=== PATIENT | female | born 1985 | race Hispanic/Latino ===

== ENCOUNTER 2021-06-14 13:41 | Emergency (ER) | payer OTHER, SELFPAY ==
[2021-06-14] VITALS (26 sets, daily range): BP systolic 91–157; BP diastolic 34–106; PULSE 85–98; RESP 12–23; TEMP 36.8; O2SAT 97–100
--- NOTE | ~2021-06-14 | CT_ITS ---
EXAMINATION: CT abdomen pelvis w con DATE: 06/14/2021 19:33 INDICATION: Left flank pain. Nausea and vomiting. TECHNIQUE: Computed tomography (CT) of the abdomen and pelvis was performed with 100 mL Omnipaque 300 intravenous contrast. Automated exposure control and iterative reconstruction technique were employe d. The dose-length product was 1509.88 mGy-cm. COMPARISON: None. FINDINGS: The visualized portions of the lung bases demonstrate mild atelectasis. A calcified left volodymyr ng nodule is consistent with old granulomatous disease. No pleural effusion. The heart size is normal . No pericardial effusion. The liver, spleen, gallbladder, pancreas, adrenal glands, and kidneys are normal. There are no dilated loops of bowel. The appendix is normal. There are no pathologically enla rged lymph nodes. There is no free intraperitoneal fluid. There is mild lumbar spondylosis. IMPRESSION: 1. No etiology for the patient's symptoms. Reviewed, dictated and finalized at location A.
[2021-06-14 14:04] LABS: Basophils Percent Auto 0.4 % (0.2-1.2); Eosinophils Absolute Auto 0.2 K/mm3 (0-0.3); Hematocrit 40.9 % (37.0-47.0); Hemoglobin 13.8 g/dL (12.0-15.0); Immature Granulocyte Absolute 0.05 K/mm3 (0.00-0.031); Immature Granulocyte Percent A 0.6 % (0-0.5); Lymphocytes Absolute Auto 2.61 K/mm3 (0.9-3.2); Lymphocytes Percent Auto 32.5 % (18.3-44.2); Mean Corpuscular HGB Conc 33.7 g/dl (32-36); Mean Corpuscular Hemoglobin 30.7 pg (26-34); Mean Corpuscular Volume 91.1 fl (80-100); Mean Platelet Volume 9.9 fl (7.4-10.4); Monocytes Absolute Auto 0.6 K/mm3 (0.1-0.6); Neutrophils Absolute Auto 4.5 K/mm3 (1.3-6.7); Neutrophils Percent Auto 56.5 % (45.5-73.1); Platelet Count Result 206 k/mm3 (150-375); Red Blood Count 4.49 M/mm3 (4.2-5.4); Red Cell Distribution Width 12.5 % (11.5-14.5)
[2021-06-14 14:07] LABS: Appearance Urine Cloudy (Clear); Bilirubin Urine Negative (Negative); Blood Urine Negative (Negative); Color Urine Yellow (Yellow); Glucose Urine UA Trace mg/dL (Negative); Ketones Urine Negative (Negative); Leukocyte Esterase Ur 1+ LEU/UL (Negative); Nitrate Urine Negative (Negative); Protein Urine Negative (Negative); Urobilinogen Urine 0.2 mg/dL (<2.0)
[2021-06-14 14:14] LABS: Add Urine Microscopic? YES; Bacteria Urine Trace /hpf; Mucus Urine Rare /lpf; Squamous Epithelial Cell Urine Many /hpf (Few)
[2021-06-14 14:46] LABS: Alanine Aminotransferase 190 U/L (4-35); Albumin Level 4.3 g/dL (3.5-5.1); Alkaline Phosphatase 108 U/L (38-126); Anion Gap 6 mmol/L (8-16); Aspartate Amino Transferase 111 U/L (14-36); Bilirubin,Total 1.6 mg/dL (0.2-1.3); Blood Urea Nitrogen 6 mg/dL (7-17); Calcium 9.6 mg/dL (8.4-10.2); Carbon Dioxide 26 mmol/L (22-30); Chloride 105 mmol/L (98-107); Glucose 122 mg/dL (65-110); Potassium 3.7 mmol/L (3.4-5.0); Sodium 137 mmol/L (137-145)
[2021-06-14 16:10] LABS: Estimated CRCL calculation 204 ml/min; Estimated Glomerular Filt Rate > 60
--- NOTE | 2021-06-14 19:14 | ED.ABDPAIN ---
HPI - Abdominal Pain General Chief Complaint: Abdominal Pain Stated Complaint: left abd pain Time Seen by Provider: 06/14/21 18:43 History of Present Illness HPI narrative: Patient is a healthy, Lao-speaking 35-year-old female here with her daughter for evaluation of left lower quadrant abdominal pain for the past day. Patient states the pain is intermittent in nature does not radiate. Denies changes to her stools; her last BM was this morning and was normal and non-bloody. States that she last ate some melon today and felt nauseous afterwards, but she denies any vomiting. Denies fevers, urinary frequency, dysuria, hematuria. She has never had a colonoscopy. Related Data Allergies Allergy/AdvReac Type Severity Reaction Status Date / Time No Known Allergies Allergy Verified 06/14/21 13:50 Review of Systems Review of Systems: Gen.: Denies fevers or chills Eyes: Denies eye pain or visual change ENT: Denies congestion Respiratory: Denies shortness of breath or cough CV: Denies chest pain or palpitations GI: Reports abdominal pain, nausea. Denies diarrhea : denies burning, urgency, frequency or hematuria Musculoskeletal: Denies back pain or muscle pain Neuro: Denies numbness, tingling, weakness or focal weakness Skin: Denies rash Except as documented, all other systems reviewed and negative Exam Narrative: APPEARANCE: Well appearing, no pain in distress, well-nourished. Head: normocephalic and atraumatic. EYES: PERRLA/EOMI, conjunctivae clear NOSE: No nasal drainage EARS: External ear normal in appearance THROAT: Oropharynx is clear. Mucous membranes are moist. NECK: Supple. No adenopathy, no masses. RESPIRATORY: Airway patent, respirations nonlabored. Clear to auscultation bilaterally, no rales, rhonchi, wheezing. CARDIOVASCULAR: Regular rate and rhythm without murmurs, rubs, or gallops. ABDOMINAL: Tender in left lower quadrant with some involuntary guarding. Normoactive bowel sounds. Soft, nondistended. No rebound tenderness. MUSCULOSKELETAL: Nonpitting edema to bilateral lower extremities. Extremities are warm and well-perfused. Moves all extremities well. No edema. NEURO: Normal speech. No focal neurologic deficits. SKIN: Skin is warm and dry. No rashes. PSYCHIATRIC: Normal affect/mood. Course Vital Signs Vital signs: Vital Signs Temperature 98.2 F 05/05/22 13:47 Pulse Rate 96 06/14/21 13:47 Respiratory Rate 18 06/14/21 13:47 Blood Pressure 157/97 H 06/14/21 13:47 Pulse Oximetry 97 06/14/21 13:47 Temperature 98.2 F 06/14/21 13:47 Pulse Rate 88 06/14/21 21:27 Respiratory Rate 20 06/14/21 21:27 Blood Pressure 128/74 06/14/21 21:27 Pulse Oximetry 100 06/14/21 21:27 MDM - Abdominal Pain MDM Narrative Medical decision making narrative: 35-year-old female here with left lower quadrant abdominal pain for the past day with nausea and vomiting. Consider diverticulitis, urinary tract infection, pyelonephritis, gastroenteritis. Lab work significant for elevation in her transaminases and elevated glucose, UA with evidence of UTI. CT scan without any acute abnormalities. Patient is pain free after zofran and dicyclomine and tolerated PO. We will treat for UTI and encourage close follow-up with primary care provider for workup of transaminitis and elevated blood glucose, provided number in case she cannot get into her own. She is not having any RUQ pain or tenderness; likely YOUNG given BMI. Discussed return precautions. Lab Data Result diagrams: 06/14/21 13:52 06/14/21 13:52 Labs: Lab Results 06/14/21 06/14/21 06/14/21 Range/Units 13:52 13:52 13:57 WBC 8.0 (4.5-10.0) K/mm3 RBC 4.49 (4.2-5.4) M/mm3 Hgb 13.8 (12.0-15.0) g/dL Hct 40.9 (37.0-47.0) % MCV 91.1 (80-100) fl MCH 30.7 (26-34) pg MCHC 33.7 (32-36) g/dl RDW 12.5 (11.5-14.5) % Plt Count 206 (150-375) k/mm3 MPV 9.9 (7.4-10.4) fl Immature Gr
[2021-06-14] MEDS: DICYCLOMINE HCL INJ 20 MG/2 ML VIAL IM (20:47)
[2021-06-14] MEDS: ONDANSETRON INJ 4 MG/2 ML VIAL IV PUSH (20:47)
== END 2021-06-14 21:30 | disposition home or self-care (01) ==
PROVIDERS: Emergency Provider Emergency Medicine
DX: N39.0 Urinary tract infection, site not specified (principal); R74.01 Elevation of levels of liver transaminase levels
CPT/HCPCS: 36415; 74177; 80053; 81001; 81025; 85025; 87086; 96372; 96374; 99284; J0500; J2405; Q9967

== ENCOUNTER 2022-01-20 13:35 | Emergency (ER) | payer OTHER, SELFPAY ==
--- NOTE | ~2022-01-20 | CT_ITS ---
EXAMINATION: CT abdomen pelvis w con DATE: 01/20/2022 15:13 INDICATION: LLQ abd pain TECHNIQUE: Computed tomography (CT) of the abdomen and pelvis was performed with 100 mL Omnipaque-350 intravenous contrast. Automated exposure control and iterative reconstruction technique were employe d. The dose-length product was 1584.79 mGy-cm. COMPARISON: 06/14/21. FINDINGS: Lower thorax: Right lower lobe granuloma. Dependent atelectasis. Liver: Enlarged and fatty infiltrated. Biliary/Gallbladder: Gallbladder is collapsed. No bile duct dilation. Pancreas: No mass or duct dilation. Spleen: Normal. Adrenals:No mass. Kidneys: No mass, obstructing stone, or hydronephrosis. 2 mm left midpole calcification. GI tract: No small or large bowel dilation. Normal appendix. Mesentery/Peritoneum: No ascites, mass, or free air. Retroperitoneum: No mass. Pelvis: Pelvic organs are within normal limits. Soft Tissues: Soft tissues and body wall unremarkable. Bones: No acute osseous finding. IMPRESSION: No acute abdominopelvic process detected. Reviewed, dictated and finalized at location K. [employer]
[2022-01-20 13:57] VITALS: BP 142/91; PULSE 90; RESP 18; TEMP 36.6; O2SAT 100
[2022-01-20 14:13] LABS: Basophils Percent Auto 0.3 % (0.2-1.2); Eosinophils Absolute Auto 0.2 K/mm3 (0-0.3); Eosinophils Percent Auto 2.1 % (0-4.4); Hematocrit 42.7 % (37.0-47.0); Hemoglobin 14.3 g/dL (12.0-15.0); Immature Granulocyte Absolute 0.03 K/mm3 (0.00-0.031); Immature Granulocyte Percent A 0.3 % (0-0.5); Lymphocytes Absolute Auto 2.25 K/mm3 (0.9-3.2); Mean Corpuscular HGB Conc 33.5 g/dl (32-36); Mean Corpuscular Hemoglobin 29.9 pg (26-34); Mean Corpuscular Volume 89.1 fl (80-100); Mean Platelet Volume 9.4 fl (7.4-10.4); Monocytes Absolute Auto 0.5 K/mm3 (0.1-0.6); Monocytes Percent Auto 6.3 % (2.6-8.5); Neutrophils Absolute Auto 5.6 K/mm3 (1.3-6.7); Platelet Count Result 299 k/mm3 (150-375); Red Blood Count 4.79 M/mm3 (4.2-5.4); Red Cell Distribution Width 12.3 % (11.5-14.5); White Blood Count 8.6 K/mm3 (4.5-10.0)
[2022-01-20 14:25] LABS: Alanine Aminotransferase 69 U/L (6-35); Albumin Level 4.5 g/dL (3.5-5.1); Alkaline Phosphatase 117 U/L (38-126); Anion Gap 6 mmol/L (8-16); Aspartate Amino Transferase 47 U/L (14-36); Bilirubin,Total 0.7 mg/dL (0.2-1.3); Blood Urea Nitrogen 11 mg/dL (7-17); Calcium 8.9 mg/dL (8.4-10.2); Carbon Dioxide 26 mmol/L (22-30); Chloride 108 mmol/L (98-107); Estimated CRCL calculation 144 ml/min; Estimated Glomerular Filt Rate > 60; Glucose 111 mg/dL (65-110); Lipase 64 U/L (23-300); Potassium 3.7 mmol/L (3.4-5.0); Sodium 140 mmol/L (137-145)
--- NOTE | 2022-01-20 14:46 | ED.ABDPAIN ---
HPI - Abdominal Pain General Chief Complaint: Abdominal Pain Stated Complaint: left side lower abdominal pain, started yesterday Time Seen by Provider: 01/20/22 14:42 History of Present Illness HPI narrative: 36-year-old female Urdu-speaking accompanied by her daughter who is the petroleum terminal plant operator presents to the emergency room for left lower quadrant abdominal pain that has been present since yesterday. States pain radiates into her left flank. Has had occasional nausea and couple of episodes of diarrhea. Denies any blood in her stools. Describes pain as a unable to describe her pain. He denies any hematuria. Denies history of colonoscopy. No abdominal surgeries. States that she was seen here several months ago for similar symptoms. Patient denies fever. Related Data Allergies Allergy/AdvReac Type Severity Reaction Status Date / Time No Known Allergies Allergy Verified 01/20/22 13:36 Review of Systems Review of Systems: CONSTITUTIONAL: Denies fever, chills, or sweats. EYES: Denies visual changes, redness, or discharge. ENT: Denies rhinorrhea, congestion, sore throat, or otalgia. CARDIOVASCULAR: Denies chest pain, palpitations, or edema. RESPIRATORY: Denies cough or dyspnea. GASTROINTESTINAL: Reports left lower quadrant pain and nausea GENITOURINARY: Denies dysuria or hematuria. SKIN: Denies rash or itching. MUSCULOSKELETAL: Denies back pain, joint pain, or myalgia. NEUROLOGIC: Denies headache, numbness, dizziness, or weakness. PSYCHIATRIC: Denies anxiety or depression. Exam Narrative: GENERAL: Well-appearing, well-nourished, no physical limitations, and in no acute distress. HEAD: Normocephalic, atraumatic. EYES: Conjunctivae normal, PERRLA and EOMI. CHEST: Clear to auscultation. No respiratory distress. No wheezes rales or rhonchi. HEART: Regular rate and rhythm. No murmur heard. Normal peripheral pulses. ABDOMEN: Soft, left lower quadrant tenderness, nondistended, morbidly obese, normal active bowel sounds. BACK: No CVA tenderness EXTREMITIES: Normal range of motion. No edema. No clubbing or cyanosis SKIN: Warm, dry, no rash. No noted wounds NEURO: No focal deficits. Alert and oriented x3. MAEW. CN's II-XI intact bilaterally, normal gait PSYCH: Cooperative. Normal mood and affect. Course Vital Signs Vital signs: Vital Signs Temperature 36.6 C 01/20/22 13:57 Pulse Rate 90 01/20/22 13:57 Respiratory Rate 18 01/20/22 13:57 Blood Pressure 142/91 H 01/20/22 13:57 Pulse Oximetry 100 01/20/22 13:57 Oxygen Delivery Room Air 01/20/22 13:57 Temperature 36.6 C 01/20/22 13:57 Pulse Rate 89 01/20/22 15:27 Respiratory Rate 18 01/20/22 15:27 Blood Pressure 136/67 01/20/22 15:27 Pulse Oximetry 100 01/20/22 15:27 Oxygen Delivery Room Air 01/20/22 13:57 MDM - Abdominal Pain MDM Narrative Medical decision making narrative: 35-year-old female presented with 1 day of left lower quadrant pain with associated nausea and vomiting. Similar clinical picture when she presented in June earlier this year. CT scan showed no acute intra-abdominal abnormality. Lab work showed a mildly elevated transaminitis and leukocytes in her urine. Tolerated oral fluids after and given fluids, Zofran and Bentyl. We will send patient home with antibiotics and Zofran. Will recommend patient follow-up with GI. Lab Data 01/20/22 14:07 01/20/22 14:07 Labs: Lab Results 01/20/22 01/20/22 01/20/22 Range/Units 14:07 14:07 14:56 WBC 8.6 (4.5-10.0) K/mm3 RBC 4.79 (4.2-5.4) M/mm3 Hgb 14.3 (12.0-15.0) g/dL Hct 42.7 (37.0-47.0) % MCV 89.1 (80-100) fl MCH 29.9 (26-34) pg MCHC 33.5 (32-36) g/dl RDW 12.3 (11.5-14.5) % Plt Count 299 (150-375) k/mm3 MPV 9.4 (7.4-10.4) fl Immature Gran % (Auto) 0.3 (0-0.5) % Neut % (Auto) 65.0 (45.5-73.1) % Lymph % (Auto) 26.0 (18.3-44.2) % Cameron % (Auto) 6.3 (2.6-8.5) % Eos % (Aut
[2022-01-20 15:00] LABS: Appearance Urine Cloudy (Clear); Bilirubin Urine Negative (Negative); Blood Urine Negative (Negative); Color Urine Yellow (Yellow); Glucose Urine UA Negative (Negative); Ketones Urine Negative (Negative); Leukocyte Esterase Ur 1+ LEU/UL (Negative); Nitrate Urine Negative (Negative); Protein Urine Negative (Negative); Specific Grav Ur 1.025 (1.001-1.035); Urobilinogen Urine 0.2 mg/dL (<2.0)
[2022-01-20] MEDS: SODIUM CHLORIDE 0.9% IV 1,000 ML 999 ML IV CONT (15:00)
[2022-01-20 15:04] LABS: Bacteria Urine Trace /hpf; Mucus Urine Rare /lpf; RBC Urine 0-2 /hpf (0-2); Squamous Epithelial Cell Urine Moderate /hpf (Few)
[2022-01-20 15:05] LABS: Add Urine Microscopic? YES
[2022-01-20 15:27] VITALS: BP 136/67; PULSE 89; RESP 18; O2SAT 100
[2022-01-20] MEDS: ONDANSETRON INJ 4 MG/2 ML VIAL IV PUSH (16:28)
[2022-01-20] MEDS: DICYCLOMINE HCL INJ 20 MG/2 ML VIAL IM (16:32)
[2022-01-20 17:09] VITALS: BP 129/82; PULSE 81; RESP 18; O2SAT 95
== END 2022-01-20 17:11 | disposition home or self-care (01) ==
PROVIDERS: Emergency Medicine; Emergency Provider Nurse Practitioner Family; PCP Registered Nurse
DX: R10.32 Left lower quadrant pain (principal); R74.01 Elevation of levels of liver transaminase levels
CPT/HCPCS: 36415; 74177; 80053; 81001; 81025; 83690; 85025; 96361; 96372; 96374; 99284; J0500; J2405; J7030; Q9967

== ENCOUNTER 2022-04-23 01:42 | Day surgery (SDC) | payer OTHER, SELFPAY ==
[2022-04-19 12:13] VITALS: BMI 44.5
[2022-04-23 07:09] VITALS: BP 140/90; PULSE 100; RESP 17; TEMP 36.4; O2SAT 99; BMI 44.0
[2022-04-23] MEDS: LACTATED RINGERS 1,000 ML 150 ML IV CONT (07:25)
--- NOTE | 2022-04-23 07:43 | P.PNAN_ITS ---
Anes - Initial Pre Proc Eval Procedure: Operation Date: 04/23/22 08:00 Proposed Procedures p Esophagogastroduodenoscopy & Colonoscopy - Tommy Allen MD Date/Time: 04/23/22 07:43 Surgeon: Tommy Allen MD Pre Op Diagnosis: Lower abdominal pain, nausea Patient Data Age: 36 Gender: F Height: 1.65 m Weight: 120 kg Last Vital Signs Temp 97.5 F L 04/23/22 07:09 Pulse 100 04/23/22 07:09 Resp 17 04/23/22 07:09 BP 140/90 04/23/22 07:09 Pulse Ox 99 04/23/22 07:09 O2 Del Method Room Air 04/23/22 07:09 Allergies Allergy/AdvReac Type Severity Reaction Status Date / Time No Known Allergies Allergy Verified 04/23/22 07:08 Home Medications Medication Instructions Recorded Confirmed Type No Home Medications 04/19/22 04/23/22 History Patient hx anesthesia problems: none Family hx anesthesia problems: none Results Review: All pre-operative results and documents have been reviewed as part of the pre- operative evaluation. [facility] Past Medical History Medical History (Updated 02/28/22 @ 14:48 by Tommy Allen MD) Nausea Obese Social History Social History Smoking status: Never smoker Alcohol intake: never Substance use: never Substance use type: does not use Living arrangements: with family Spiritual care concerns: No Anes - Eval Final PreProcedure Day of Procedure 04/23/22 07:43 Patient weight: morbidly obese Heart: regular rate and rhythm Lungs: clear to auscultation Airway: Mallampati scale class II Neurological: alert and oriented Last oral intake: >/= 8 hours ASA classification: III Emergent: no Anesthetic plan: proceed Anesthesia type and monitoring: general GIVS and standard monitoring Results Review: All pre-operative results and documents have been reviewed as part of the pre- operative evaluation. Informed Consent: The patient's anesthetic plan and its attendant risks and benefits were discussed with the patient/family/POA. Questions were solicited and answers provided to the satisfaction of the patient/family/POA.
--- NOTE | 2022-04-23 08:04 | PM.HPGS ---
History of Present Illness History of Present Illness Consent: Risks, benefits, and alternatives have been discussed and questions answered. Patient agrees to proceed with procedure. Chief complaint: Lower abdominal pain, nausea Narrative: Emmie England is a 36 year old female here for egd and colonoscopy, she had episode of lower abdominal pain and nausea for which came to ER, recently doing better Review of Systems Constitutional: Constitutional: Denies headache(s) and Denies weakness Eyes: Eyes: Denies blurry vision ENT: Reports Normal hearing present, Denies headache(s) and Denies neck pain Cardiovascular: Cardiovascular: Denies chest pain and Denies dyspnea Respiratory: Respiratory: Denies dyspnea Gastrointestinal: Gastrointestinal: Reports no additional gastrointestinal complaints Genitourinary: Genitourinary: Denies dysuria Musculoskeletal: Musculoskeletal: Denies neck pain Integumentary/Breasts: Skin/Breast: Denies dry skin Neurologic: Reports Normal hearing present, Denies headache(s) and Denies weakness Psychiatric: Psychiatric: Denies anxiety Endocrine: Endocrine: Denies change in body appearance Hematologic/Lymphatic: Hematologic/Lymphatic: Denies easy bleeding Allergic/Immunologic: Allergic/Immunologic: Denies urticaria PMFSH Past Medical History Medical History (Updated 04/23/22 @ 08:05 by Tommy Allen MD) Lower abdominal pain Nausea Obese Social History Social History Smoking status: Never smoker Alcohol intake: never Substance use: never Substance use type: does not use Living arrangements: with family Spiritual care concerns: No Meds Home Medications and Allergies Home Medications Medication Instructions Recorded Confirmed Type No Home Medications 04/19/22 04/23/22 History Allergies Allergy/AdvReac Type Severity Reaction Status Date / Time No Known Allergies Allergy Verified 04/23/22 07:08 Vital Signs Vital Signs - 24 hr 04/23/22 07:09 Temperature 97.5 F L Pulse Rate 100 Respiratory Rate 17 Blood Pressure 140/90 Pulse Oximetry 99 Oxygen Delivery Room Air Exam Const: General: comfortable and no acute distress HENMT: Face/Nose/Sinus: Normal nares present Eyes: General: appearance normal, both eyes and all related structures Neck: Neck: no JVD Resp: Auscultation: clear to auscultation bilaterally Cardio: Rate: regular rate Rhythm: regular rhythm GI: Inspection: non-distended GI Palp: Yes Soft to palpation Skin: General skin exam: normal color Neuro: General: gait normal Speech: normal speech Extrem: General: normal to inspection Psych: Mental Status: mental status grossly normal Assessment and Plan Assessment and plan (1) Nausea: Code(s): R11.0 - Nausea Status: Acute Assessment and Plan: egd with bx (2) Lower abdominal pain: Code(s): R10.30 - Lower abdominal pain, unspecified Status: Acute Assessment and Plan: colonoscopy
--- NOTE | 2022-04-23 08:23 | SUR.OPER ---
EGD: [id number] COLON: [id number]
[2022-04-23 08:34] VITALS: BP 104/60; PULSE 85; RESP 21; O2SAT 97
[2022-04-23 08:44] VITALS: BP 103/67; PULSE 77; RESP 20; O2SAT 100
[2022-04-23 08:54] VITALS: BP 113/67; PULSE 74; RESP 23; O2SAT 100
== END 2022-04-23 09:06 | disposition home or self-care (01) ==
PROVIDERS: PCP Registered Nurse; Visit Provider Internal Medicine Gastroenterology
PROC: 0DJ08ZZ Inspection of Upper Intestinal Tract, Via Natural or Artificial Opening Endoscopic (ICD-10-PCS; CPT 43235; principal; 2022-04-23 08:00)
DX: R11.0 Nausea (principal); R10.30 Lower abdominal pain, unspecified
CPT/HCPCS: 43239; 45378; 88305; 88342; J2704; J7120

== ENCOUNTER 2023-01-15 12:34 | Emergency (ER) | payer OTHER, SELFPAY ==
[2023-01-15 13:00] VITALS: BP 125/61; PULSE 85; RESP 16; TEMP 37.2; O2SAT 100
--- NOTE | 2023-01-15 13:40 | ED.URI ---
HPI - URI/Sore Throat General Chief Complaint: Upper Respiratory Infection Stated Complaint: thtroat hurts,headache,chest pain History of Present Illness HPI Narrative: 37-year-old female presented for complaint of cough, sore throat, chest congestion. Onset 2 days. Endorses throat pain is worse with swallowing. Not taking anything for symptoms. Endorses children have similar symptoms. She denies shortness of breath, wheezing, nausea, vomiting, diarrhea, fevers or chills. Related Data Home Medications Medication Instructions Recorded Confirmed No Home Medications 01/15/23 01/15/23 Allergies Allergy/AdvReac Type Severity Reaction Status Date / Time No Known Allergies Allergy Verified 01/15/23 12:59 Review of Systems Review of Systems: CONSTITUTIONAL: Denies body aches, fever, chills, or sweats. EYES: Denies visual changes, redness, or discharge. ENT: Reports sore throat Denies rhinorrhea, or otalgia. CARDIOVASCULAR: Denies chest pain, palpitations, or edema. RESPIRATORY: reports cough Denies dyspnea. GASTROINTESTINAL: Denies abdominal pain, nausea, vomiting, or diarrhea. SKIN: Denies rash, itching, or wounds. MUSCULOSKELETAL: Denies back pain, joint pain, or myalgia. NEUROLOGIC: Denies headache PMFSH Past Medical History Medical History H. pylori infection Lower abdominal pain Nausea Obese Social History Social History Smoking status: Never smoker Alcohol intake: never Substance use: never Substance use type: does not use Living arrangements: with family Spiritual care concerns: No Exam Narrative: GENERAL: mildly Ill-appearing, no acute distress. EYES: conjunctivae clear ENT: Mucous membranes moist. TM pearly bryant with normal light reflex bilaterally; no tragal tenderness. Oropharynx not erythematous without lesions. Tonsils not enlarged and without exudate. No drooling, no hoarseness, no trismus, uvula midline. No tripod positioning, hot potato voice, or soft palate swelling. NECK: Supple. No lymphadenopathy CHEST: Clear to auscultation, breath sounds equal. No respiratory distress, speaks in full sentences. HEART: Regular rate and rhythm. No murmur heard. SKIN: Warm, dry, no rash. NEURO: Alert and oriented x3. Course Course Emergency Course: Patient is aware of diagnosis, understands and agrees to treatment plan. Anticipatory guidance given. Patient agrees to follow-up as directed and is aware of reasons to seek care at the emergency department. Portions of this record may have been created with voice recognition software Level of Care: Express Care Visit Vital Signs Vital signs: Vital Signs Temperature 99.0 F 01/15/23 13:00 Pulse Rate 85 01/15/23 13:00 Respiratory Rate 16 01/15/23 13:00 Blood Pressure 125/61 01/15/23 13:00 Pulse Oximetry 100 01/15/23 13:00 Oxygen Delivery Room Air 01/15/23 13:00 Temperature 99.0 F 01/15/23 13:00 Pulse Rate 85 01/15/23 13:00 Respiratory Rate 16 01/15/23 13:00 Blood Pressure 125/61 01/15/23 13:00 Pulse Oximetry 100 01/15/23 13:00 Oxygen Delivery Room Air 01/15/23 13:00 MDM - URI/Sore Throat MDM Narrative Medical decision making narrative: Neg covid, flu, and strep result reviewed with pt. Advise supportive treatments and s/s to go to the ER. Patient is appropriate for outpatient treatment and follow-up. Differential Diagnosis Differential diagnosis: Likely upper respiratory infection, otitis media, sinusitis, viral infection, bronchitis, influenza and pharyngitis Lab Data Labs: Lab Results 01/15/23 Range/Units Unknown POC SARS CoV-2 Ag Negative (Negative) Influenza A Screen Negative Reference Range: Negative Influenza B Screen Negative
== END 2023-01-15 13:57 | disposition home or self-care (01) ==
PROVIDERS: Emergency Provider Nurse Practitioner Family; PCP Registered Nurse
DX: B34.9 Viral infection, unspecified (principal); Z20.822 Contact with and (suspected) exposure to COVID-19
CPT/HCPCS: 87081; 87426; 87804; 87880; 99213; C9803; G0463